=== PATIENT | female | born 1955 | race Caucasian/White ===

== ENCOUNTER → 2016-10-05 | Outpatient (CLI) | payer BC ==
--- NOTE | ~2016-10-05 | MY29 ---
[facility] A Service of [facility] RADIOLOGY TEXT RESULTS PATIENT: CARLA BUSH LOCATION: [facility] : 57 UNIT #: [id number] AGE: [address]: Sri Whitley APRN SEX: F ORDER DR: [id number] [facility] [address] [place], [place] [address] [id number] O MR#: [id number] Acc #: [id number] NAME: CARLA BUSH : 1955 SEX: F STUDY DATE/TIME: 10/05/2016 12:55 UNIT: [facility] ROOM: STUDY DESCRIPTION: [facility] SCREENING W/ CAD BILAT Attending Physician: Sri Whitley A.P.R.N. Referring Physician: Sri Whitley A.P.R.N. Ordering Physician: Sri Whitley A.P.R.N. Primary Care Physician: Sri Whitley A.P.R.N. MEDICAL IMAGING REPORT This report is preliminary unless electronic signature is present EXAM Bilateral digital screening mammogram with CAD HISTORY Routine screening. No current complaints. No family history of breast cancer. COMPARISON 07/13/2015, 07/07/2014, 05/20/2013 FINDINGS MLO and CC digital views of each breast were obtained. The exam was reviewed with a FDA-approved CAD. The breasts are heterogenously dense. There are no masses or abnormal calcifications. IMPRESSION No change and no evidence of malignancy. Patient's over the age of 40 are entered into a reminder system with target due date for the next mammogram. A result letter will be sent to the patient. BIRADS: 1 Negative Dictated by... Ameya Li M.D. THIS IS AN ELECTRONICALLY VERIFIED REPORT Ameya Li M.D. at 10/09/2016 10:08 PM FEL/to TD: 10/09/2016 16:20 [facility] A Service of [facility] RADIOLOGY TEXT RESULTS PATIENT: CARLA BUSH LOCATION: [facility] : 57 UNIT #: [id number] AGE: [address]: Sri Whitley APRN SEX: F ORDER DR: JOB #: [id number] MEDICAL IMAGING REPORT Page 1 of 1 COPY
--- NOTE | ~2016-10-05 | BD1 ---
[facility] A Service of [facility] & [facility] RADIOLOGY TEXT RESULTS PATIENT: CARLA BUSH LOCATION: [facility] : 57 UNIT #: [id number] AGE: [address]: Sri Whitley APRN SEX: F ORDER DR: [id number] [facility] [address] [place], [place] [address] [id number] O MR#: [id number] Acc #: [id number] NAME: CARLA BUSH : 1955 SEX: F STUDY DATE/TIME: 10/05/2016 13:06 UNIT: [facility] ROOM: STUDY DESCRIPTION: BD Dexa Bone Dens 1+ Site Attending Physician: Sri Whitley A.P.R.N. Referring Physician: Sri Whitley A.P.R.N. Ordering Physician: Sri Whitley A.P.R.N. Primary Care Physician: Sri Whitley A.P.R.N. MEDICAL IMAGING REPORT This report is preliminary unless electronic signature is present EXAM DXA scan, 10/05/2016. HISTORY Status post menopause with no hormone replacement therapy. Osteopenia and arthritis. 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 FINDINGS Bone mineral density in the right femoral neck was 0.709 g/cm2, which is 1.3 standard deviations below the mean when compared to young adult reference population, which is characteristic of osteopenia. This is 0 standard deviations from mean when compared to the age-matched population. Bone mineral density in the left forearm was 0.463 g/cm2, which is 2.1 standard deviations below the mean when compared to the young adult reference population, which is characteristic of osteopenia. This is 0.9 standard deviations below the mean when compared to the age-matched population. IMPRESSION Bone mineral density in the right hip and left forearm characteristic of osteopenia. Dictated by... Kayden Oreilly M.D. THIS IS AN ELECTRONICALLY VERIFIED REPORT Kayden Oreilly M.D. at 10/09/2016 7:18 AM KRT/pc TD: 10/06/2016 12:25 JOB #: [id number] MEDICAL IMAGING REPORT [facility] A Service of [facility] & [facility] RADIOLOGY TEXT RESULTS PATIENT: CARLA BUSH LOCATION: [facility] #: [id number] : 57 UNIT #: [id number] AGE: [address]: Sri Whitley APRN SEX: F ORDER DR: Page 1 of 1 COPY
== END | disposition home or self-care (01) ==
LOC: CWCC 12:10
DX: Z12.31 Encounter for screening mammogram for malignant neoplasm of breast (principal); M19.90 Unspecified osteoarthritis, unspecified site; Z78.0 Asymptomatic menopausal state
CPT/HCPCS: 77080; G0202